=== PATIENT | male | born 1990 | race Caucasian/White ===

== ENCOUNTER → 2025-10-15 06:50 | Outpatient (REF) | payer BC, SELFPAY ==
[2025-10-15 07:35] LABS: Hematocrit 41.8 % (39.0-52.0); Hemoglobin 14.0 g/dL (13.0-18.0); Mean Corp Hgb Conc. 33.5 g/dL (33.0-37.0); Mean Corpuscular Volume 88.9 fL (80.0-94.0); Nucleated Red Blood Cells % 0 % (-); Platelet Count 311 10^3/uL (130-400); Red Cell Dist. Width 11.8 % (11.5-14.5)
[2025-10-15 07:54] LABS: ALT (SGPT) 24 U/L (0-50); AST (SGOT) 20 U/L (17-59); Albumin 4.7 g/dl (3.5-5.0); Alkaline Phosphatase 42 U/L (38-126); Blood Urea Nitrogen 15 mg/dl (9-20); Calcium 10.0 mg/dl (8.4-10.2); Carbon Dioxide 27 mmol/L (22-30); Chloride 105 mmol/L (98-107); Glucose 93 mg/dl (70-99); Potassium 4.3 mmol/L (3.5-5.1); Sodium 138 mmol/L (135-145); Total Protein 7.8 g/dl (6.3-8.2); eGFR > 60.00
== END ==
LOC: RAD 06:50
PROVIDERS: ATTENDING PHYSICIAN Nurse Practitioner Family
DX: R51.9 Headache, unspecified (principal); G44.52 New daily persistent headache (NDPH); G44.84 Primary exertional headache; Z13.89 Encounter for screening for other disorder
CPT/HCPCS: 36415; 70496; 70498; 80053; 85025; Q9967